=== PATIENT | female | born 1945 | race Caucasian/White ===

== ENCOUNTER 2016-07-20 08:51 | Emergency (ER) | payer OTHER ==
[2016-07-20 09:17] VITALS: BP 149/94
--- NOTE | 2016-07-20 10:17 | RAD ---
INDICATION: Wrist pain after a fall COMPARISON: None. TECHNIQUE: 3 views left wrist. REPORT: There is a fracture involving the left distal radial metaphysis with a small amount of dorsal angulation seen on the lateral view. The articular surface of the radius does not appear to be directly involved. Remaining visualized bones are intact and appropriately aligned. IMPRESSION: Dorsally displaced left distal radius fracture.
--- NOTE | 2016-07-20 11:01 | UC ---
Hand/Wrist HPI - HPI Summary HPI Summary: FALL BACKWARDS THIS MORNING LANDED ON LEFT OUTSTRETCHED HAND. PAIN AND DEFORMITY IN LEFT WRIST SINCE INJURY - History Of Current Complaint Chief Complaint: UCUpperExtremity Stated Complaint: WRIST INJURY Time Seen by Provider: 07/20/16 09:30 Hx Obtained From: Patient Hx Last Menstrual Period: menapause ?: No Onset/Duration: Sudden Onset, Lasting Hours, Still Present Severity Initially: Moderate Severity Currently: Moderate Pain Intensity: 8 Pain Scale Used: 0-10 Numeric Character Of Pain: Dull, Aching Aggravating Factor(s): Flexion, Extension Associated Signs And Symptoms: Positive: Swelling. Negative: Numbness/Tingling Related History: Dominant Hand Right - Risk Factors Compartment Syndrome Risk Factors: Pain - Allergies/Home Medications Allergies/Adverse Reactions: Allergies Allergy/AdvReac Type Severity Reaction Status Date / Time No Known Allergies Allergy Verified 06/25/16 13:24 PMH/Surg Hx/FS Hx/Imm Hx Previously Healthy: Yes Endocrine History Of: Reports: Thyroid Disease Denies: Diabetes Cardiovascular History Of: Denies: Cardiac Disorders, Hypertension - bp elevated on this visit pt denies hx Respiratory History Of: Reports: Bronchitis - HX OF, NONE RECENT Denies: COPD, Asthma GI/ History Of: Denies: Ulcer Neurological History Of: Reports: Seizures - HX OF, LAST ONE 1975 Cancer History Of: Denies: Breast Cancer - Surgical History Surgical History: Yes Surgery Procedure, Year, and Place: [place]AROSCOPIC [place] [facility] [place] Family History Known Family History: Negative: Blood Disorder - Social History Occupation: Retired Lives: With Family Alcohol Use: Daily Alcohol Amount: 1 OR 2 GLASSES OF WINE Substance Use Type: None Smoking Status (MU): Never Smoked Tobacco - Immunization History Most Recent Influenza Vaccination: none Most Recent Tetanus Shot: unsure Most Recent Pneumonia Vaccination: unsure Review of Systems Constitutional: Negative Skin: Negative Eyes: Negative ENT: Negative Respiratory: Negative Cardiovascular: Negative Gastrointestinal: Negative Genitourinary: Negative Musculoskeletal: Arthralgia, Decreased ROM - LEFT WRIST, Edema - LEFT WRIST, Myalgia Neurological: Negative Psychological: Negative All Other Systems Reviewed And Are Negative: Yes Physical Exam Triage Information Reviewed: Yes Appearance: Well-Appearing, Well-Nourished, Pain Distress - MODERATE Vital Signs: Initial Vital Signs Temp 97.7 F 07/20/16 09:04 Pulse 72 07/20/16 09:04 Resp 18 07/20/16 09:04 BP 149/94 07/20/16 09:04 Pulse Ox 99 07/20/16 09:04 Vital Signs Reviewed: Yes Eye Exam: Normal Eyes: Positive: Conjunctiva Clear ENT Exam: Normal ENT: Positive: Normal ENT inspection, Hearing grossly normal, Pharynx normal, TMs normal Dental Exam: Normal Neck exam: Normal Neck: Positive: Supple, Nontender, No Lymphadenopathy Respiratory Exam: Normal Respiratory: Positive: Chest non-tender, Lungs clear, Normal breath sounds, No respiratory distress, No accessory muscle use Cardiovascular Exam: Normal Cardiovascular: Positive: RRR, No Murmur, Pulses Normal Abdominal Exam: Normal Musculoskeletal: Positive: Strength Limited @ - LEFT WRIST, ROM Limited @ - LEFT WRIST, Edema @ - LEFT WRIST Neurological Exam: Normal Neurological: Positive: Fatigued Skin Exam: Normal Diagnostics - Laboratory Diagnostic Studies Completed/Ordered: WRIST XRAY: CLOSED DORSALLY DISPLACED FRACTURE OF LEFT DISTAL RADIUS Hand/Wrist Course/Dx - Differential Dx/Diagnosis Differential Diagnosis/HQI/PQRI: Fracture, Sprain, Strain Provider Diagnoses: CLOSED DORSALLY DISPLACED FRACTURE OF LEFT DISTAL RADIUS - Physician Notifications Discussed Patient Care With: DR Claudia CLEVELAND, ADVISED TO SEND PATIENT OVER TO OFFICE ([facility]) FOR REDUCTION AND SPLINTING Time Discussed With Above Provider: 10:25 Instructed by Provider To: Send To Office Now Discharge - Discharge Plan Condition: Stable Disposition: HOME Patient Education Materials: Wrist Fracture in Adults (ED) Referrals: Chanda Tejada MD [Primary Care Provider] - Laura Cleveland MD [Medical Doctor] - Additional Instructions: PLEASE GO DIRECTLY TO DR. CLEVELAND'S OFFICE. SHE WILL SEE YOU TODAY.
== END 2016-07-20 10:40 | disposition home or self-care (01) ==
LOC: UCEAST 08:51
DX: S52.502A Unspecified fracture of the lower end of left radius, initial encounter for closed fracture (principal); W19.XXXA Unspecified fall, initial encounter; Y93.9 Activity, unspecified; Y92.9 Unspecified place or not applicable
CPT/HCPCS: 99211; G0463

== ENCOUNTER 2017-05-14 09:55 | Emergency (ER) | payer OTHER ==
[2017-05-14 10:28] VITALS: BP 147/79
--- NOTE | 2017-05-14 11:01 | UC ---
Hand/Wrist HPI - HPI Summary HPI Summary: States that 4 days ago she was inspecting broken wood furniture and believes she got a splint in her right index. It has become swollen and painful ever since. Denies fever. States pain is 4-5/10 and she has not taken any medication to alleviate it. - History Of Current Complaint Chief Complaint: UCUpperExtremity Stated Complaint: SPLINTER IN TIP OF FINGER Time Seen by Provider: 05/14/17 10:53 Hx Last Menstrual Period: menapause - Allergies/Home Medications Allergies/Adverse Reactions: Allergies Allergy/AdvReac Type Severity Reaction Status Date / Time No Known Allergies Allergy Verified 05/14/17 10:25 PMH/Surg Hx/FS Hx/Imm Hx Previously Healthy: Yes Endocrine History: Hypothyroidism Respiratory History: Asthma - Surgical History Surgical History: Yes Surgery Procedure, Year, and Place: LAPAROSCOPIC TUBAL LIGATION [place] [facility] – [place] - Family History Known Family History: Negative: Blood Disorder - Social History Alcohol Use: Daily Alcohol Amount: 1 OR 2 GLASSES OF WINE Substance Use Type: None Smoking Status (MU): Never Smoked Tobacco - Immunization History Most Recent Influenza Vaccination: none Most Recent Tetanus Shot: unsure Most Recent Pneumonia Vaccination: unsure Review of Systems Constitutional: Negative Musculoskeletal: Edema Is Patient Immunocompromised?: No All Other Systems Reviewed And Are Negative: Yes Physical Exam Triage Information Reviewed: Yes Vital Signs: Initial Vital Signs Temp 98 F 05/14/17 10:26 Pulse 74 05/14/17 10:26 Resp 16 05/14/17 10:26 BP 147/79 05/14/17 10:26 Pulse Ox 100 05/14/17 10:26 Vital Signs Reviewed: Yes Musculoskeletal: Positive: Other: - tender left index with edema/erythema and fluctuant mass on radial aspect of nail cuticle right index. Procedures - Incision and Drainage Site: right index Instrument(s): Scalpel Hand/Wrist Course/Dx - Course Course Of Treatment: incision and drainage performed of small abscess right index. Continue wound care and take antibiotics as prescribed, to f/u with PCP in 4 days. - Differential Dx/Diagnosis Provider Diagnoses: paronychia. right index finger abscess Discharge - Discharge Plan Condition: Stable Disposition: HOME Prescriptions: Sulfamethox/Trimethoprim DS* [Bactrim DS 800/160 TAB*] 1 tab PO BID 7 Days #14 tab Patient Education Materials: Paronychia (ED), Acute Wound Care (ED) Referrals: Chanda Tejada MD [Primary Care Provider] -
== END 2017-05-14 10:58 | disposition home or self-care (01) ==
LOC: UCEAST 09:55
DX: L02.511 Cutaneous abscess of right hand (principal); L03.011 Cellulitis of right finger; J45.909 Unspecified asthma, uncomplicated
CPT/HCPCS: 10060; 99212; G0463

== ENCOUNTER 2023-03-02 19:29 | Inpatient (IN) ==
[2023-03-02] MEDS ORDERED: Ondansetron 4 mg VIAL 2 MG/ML 2 ml VIAL IV ONE (19:53)
[2023-03-02] MEDS ORDERED: Morphine 4 MG/ML VIAL (1 ml) IV ONE (21:38)
[2023-03-02] MEDS ORDERED: Ondansetron 4 mg VIAL 2 MG/ML 2 ml VIAL IV PRN (23:44)
[2023-03-02] MEDS ORDERED: Polyethylene Glycol 3350 17 GM PACKET PO PRN (23:44)
[2023-03-02] MEDS ORDERED: Senna TAB 8.6 mg TAB PO PRN (23:44)
[2023-03-02] MEDS ORDERED: Heparin 5000 UNITS/ML 1 mL VIAL SUBCUT ONE (23:47)
[2023-03-03 00:16] LABS: ABS Eosinophils 0.1 10^3/uL (0.0-0.5); ABS Lymphocytes 0.5 10^3/uL (1.0-4.8); ABS Monocytes 0.6 10^3/uL (0.0-0.9); ABS Neutrophils 9.2 10^3/uL (1.5-7.6); Eosinophil % 0.8 %; Hematocrit 42.7 % (35-45); Hemoglobin 14.6 g/dL (11.5-14.3); Lymphocyte % 4.5 %; Mean Corpuscular Hemoglobin 31.9 pg (27-33); Mean Corpuscular Hgb Conc 34.1 g/dL (31-36); Mean Corpuscular Volume 93.6 fL (80-97); Mean Platelet Volume 7.9 fL (7.5-11.2); Platelet Count 188 10^3/uL (150-450); Red Blood Count 4.56 10^6/uL (3.63-4.92); Red Cell Distribution Width 14.1 % (12-17); White Blood Count 10.4 10^3/uL (3.8-11.8)
[2023-03-03 00:33] LABS: Albumin 4.1 g/dL (3.2-5.2); Albumin/Globulin Ratio 1.5 (1-3); Calcium 8.8 mg/dL (8.6-10.3); Creatinine, Serum 0.72 mg/dL (0.51-0.95); Globulin 2.7 g/dL (2-4); Magnesium 2.3 mg/dL (1.9-2.7); Potassium 3.8 mmol/L (3.5-5.0); Total Bilirubin 0.4 mg/dL (0.2-1.0); Total Protein 6.8 g/dL (6.4-8.9); eGFR CKD-EPI 86.1 (>60)
[2023-03-03] MEDS ORDERED: Potassium Chlor 20 meq TAB.ER PO ONE (00:57)
[2023-03-03] MEDS ORDERED: Morphine 2 MG/ML SYRINGE IV PRN ×2 (00:58→15:20)
[2023-03-03] MEDS ORDERED: Fluticasone-Salmeterol 250-50 DISKUS NF INH SCH (01:00)
[2023-03-03] MEDS ORDERED: Albuterol HFA INHALER 8 gm MDI INH PRN (01:12)
[2023-03-03] MEDS: Acetaminophen IV 1 GM/100ML 1,000 MG/100 ML BAG IV SCH ×4 (01:48→20:07)
[2023-03-03 05:14] LABS: ABS Eosinophils 0.1 10^3/uL (0.0-0.5); ABS Lymphocytes 0.6 10^3/uL (1.0-4.8); ABS Monocytes 0.7 10^3/uL (0.0-0.9); ABS Neutrophils 6.2 10^3/uL (1.5-7.6); Eosinophil % 1.3 %; Hematocrit 40.5 % (35-45); Hemoglobin 13.8 g/dL (11.5-14.3); Mean Corpuscular Hemoglobin 32.1 pg (27-33); Mean Corpuscular Hgb Conc 34.1 g/dL (31-36); Mean Corpuscular Volume 94.1 fL (80-97); Mean Platelet Volume 7.5 fL (7.5-11.2); Nucleated Red Blood Cells % 0.1 /100 WBC (0.0-0.4); Platelet Count 167 10^3/uL (150-450); Red Cell Distribution Width 14.3 % (12-17); White Blood Count 7.6 10^3/uL (3.8-11.8)
[2023-03-03 05:32] LABS: Calcium 8.4 mg/dL (8.6-10.3); Creatinine, Serum 0.64 mg/dL (0.51-0.95); Magnesium 2.3 mg/dL (1.9-2.7); Potassium 4.2 mmol/L (3.5-5.0)
[2023-03-03] MEDS: Mometasone/Formoter 200/5 MDI INH SCH ×2 (09:32→18:53)
[2023-03-03] MEDS ORDERED: Enoxaparin 40 MG/0.4 ML SYR SUBCUT ONE (15:34)
[2023-03-04] MEDS: Acetaminophen IV 1 GM/100ML 1,000 MG/100 ML BAG IV SCH ×4 (00:58→22:14)
[2023-03-04 06:14] LABS: ABS Eosinophils 0.1 10^3/uL (0.0-0.5); ABS Lymphocytes 0.4 10^3/uL (1.0-4.8); ABS Monocytes 0.5 10^3/uL (0.0-0.9); ABS Neutrophils 4.9 10^3/uL (1.5-7.6); ABS Nucleated RBC 0.01 10^3/ul; Eosinophil % 2.4 %; Hematocrit 39.7 % (35-45); Hemoglobin 13.7 g/dL (11.5-14.3); Lymphocyte % 6.3 %; Mean Corpuscular Hemoglobin 32.4 pg (27-33); Mean Corpuscular Hgb Conc 34.6 g/dL (31-36); Mean Corpuscular Volume 93.6 fL (80-97); Mean Platelet Volume 8.3 fL (7.5-11.2); Nucleated Red Blood Cells % 0.1 /100 WBC (0.0-0.4); Platelet Count 148 10^3/uL (150-450); Red Blood Count 4.24 10^6/uL (3.63-4.92)
[2023-03-04 06:23] LABS: Creatinine, Serum 0.56 mg/dL (0.51-0.95); Potassium 3.8 mmol/L (3.5-5.0)
[2023-03-04 06:24] LABS: Calcium 8.4 mg/dL (8.6-10.3); eGFR CKD-EPI 93.9 (>60)
[2023-03-04] MEDS: Mometasone/Formoter 200/5 MDI INH SCH ×2 (11:31→19:59)
[2023-03-04] MEDS ORDERED: fentaNYL 100 mcg/2 ml 50 MCG/ML VIAL IV PRN (13:33)
[2023-03-04] MEDS ORDERED: HYDROcodone/ACETAMIN 5/325 mg TAB PO PRN (13:33)
[2023-03-04] MEDS ORDERED: Metoclopramide 5 MG/ML VIAL (10 mg) IV PRN (13:33)
[2023-03-04] MEDS ORDERED: Naloxone 0.4 mg VIAL 0.4 mg/ml 1 ml VIAL IV PRN (13:33)
[2023-03-04] MEDS ORDERED: Ondansetron 4 mg VIAL 2 MG/ML 2 ml VIAL IV PRN (13:33)
[2023-03-04] MEDS ORDERED: Buffered Lidocaine 1% SYRIN 1 ml INTRADERM ONE (13:33)
[2023-03-04] MEDS ORDERED: Lactated Ringers 1000 ml BAG 1,000 ML IV SCH (14:00)
[2023-03-04] MEDS ORDERED: Propofol 10 MG/ML 20 ML BTL ONE (14:02)
[2023-03-04] MEDS ORDERED: Lidocaine 2% PF 5 ML VIAL ONE (14:02)
[2023-03-04] MEDS ORDERED: Midazolam 2 mg/2 ml VIAL 1 mg/ml 2 ml VIAL (2 mg) ONE (14:02)
[2023-03-04] MEDS ORDERED: Dexamethasone IV 4 MG/ML VIAL 1 ml VIAL ONE (14:02)
[2023-03-04] MEDS ORDERED: fentaNYL 100 mcg/2 ml 50 MCG/ML VIAL ONE (14:02)
[2023-03-04] MEDS ORDERED: Ondansetron 4 mg VIAL 2 MG/ML 2 ml VIAL ONE (14:02)
[2023-03-04] MEDS ORDERED: ceFAZolin 2 GM PREMIX 2 GM/50 ML BAG ONE (14:36)
[2023-03-04] MEDS ORDERED: Rocuronium 50 mg VIAL 10 mg/ml 5 ml VIAL (50 mg) ONE (14:50)
[2023-03-04] MEDS ORDERED: Vancomycin 1,000 MG VIAL ONE (15:33)
[2023-03-04] MEDS ORDERED: Bupivacaine 0.5% SDV PF 30ML VIAL ONE (15:33)
[2023-03-04] MEDS ORDERED: Phenylephrine 40 mcg/mL 10mL (400mcg) SYRINGE ONE (15:56)
[2023-03-04] MEDS ORDERED: Sterile Water for Inj 10 ML ONE (16:16)
[2023-03-04] MEDS ORDERED: HYDROmorphone 0.5 MG/0.5 ML SYRINGE ONE (16:45)
[2023-03-05] MEDS: ceFAZolin 1 GM ADVAN 1 GM in NS 0.9% 50 ML 50 ML IVPB SCH ×3 (00:02→15:45)
[2023-03-05] MEDS ORDERED: Calcium Carb (TUMS) 500 mg CHEW TAB PO ONE (03:27)
[2023-03-05] MEDS: Acetaminophen IV 1 GM/100ML 1,000 MG/100 ML BAG IV SCH ×4 (05:02→17:43)
[2023-03-05 05:49] LABS: ABS Lymphocytes 0.4 10^3/uL (1.0-4.8); ABS Monocytes 0.8 10^3/uL (0.0-0.9); ABS Neutrophils 7.6 10^3/uL (1.5-7.6); Eosinophil % 0.1 %; Hematocrit 36.2 % (35-45); Hemoglobin 12.4 g/dL (11.5-14.3); Lymphocyte % 4.3 %; Mean Corpuscular Hgb Conc 34.2 g/dL (31-36); Mean Corpuscular Volume 93.7 fL (80-97); Platelet Count 166 10^3/uL (150-450); Red Blood Count 3.86 10^6/uL (3.63-4.92); White Blood Count 8.8 10^3/uL (3.8-11.8)
[2023-03-05 06:08] LABS: Calcium 8.4 mg/dL (8.6-10.3); Creatinine, Serum 0.69 mg/dL (0.51-0.95); Magnesium 1.9 mg/dL (1.9-2.7); Potassium 4.4 mmol/L (3.5-5.0); eGFR CKD-EPI 89.3 (>60)
[2023-03-05] MEDS: Mometasone/Formoter 200/5 MDI INH SCH ×2 (08:53→19:56)
[2023-03-05] MEDS: Enoxaparin 40 MG/0.4 ML SYR SUBCUT SCH (22:10)
[2023-03-06] MEDS: Acetaminophen IV 1 GM/100ML 1,000 MG/100 ML BAG IV SCH ×4 (00:10→17:51)
[2023-03-06] MEDS: Mometasone/Formoter 200/5 MDI INH SCH ×2 (08:05→19:55)
[2023-03-06] MEDS: Enoxaparin 40 MG/0.4 ML SYR SUBCUT SCH (20:54)
[2023-03-07] MEDS: Acetaminophen IV 1 GM/100ML 1,000 MG/100 ML BAG IV SCH ×6 (00:17→19:57)
[2023-03-07] MEDS ORDERED: Acetaminophen IV 1 GM/100ML 1,000 MG/100 ML BAG IV SCH (07:00)
[2023-03-07] MEDS ORDERED: Furosemide 20 mg/2 ml IV VIAL IV ONE (07:26)
[2023-03-07] MEDS: Mometasone/Formoter 200/5 MDI INH SCH ×2 (08:03→19:49)
[2023-03-07] MEDS: Enoxaparin 40 MG/0.4 ML SYR SUBCUT SCH (21:34)
[2023-03-08] MEDS: Acetaminophen IV 1 GM/100ML 1,000 MG/100 ML BAG IV SCH ×3 (02:23→14:32)
[2023-03-08] MEDS: Mometasone/Formoter 200/5 MDI INH SCH (08:31)
[2023-03-08 14:23] VITALS: BP 132/76
== END 2023-03-08 15:40 | disposition home or self-care (01) | DRG 522 ==
LOC: ED 19:29 → EDHOLD 23:49 → SUATTDRO 23:49 → AA 03-03 12:57 → SSU 03-03 15:02
PROVIDERS: ADMIT Internal Medicine; ATTEND Student in an Organized Health Care Education/Training Program